=== PATIENT | female | born 1960 | race Caucasian/White ===

== ENCOUNTER 2017-06-13 10:14 | Outpatient (CLI) | payer BC | END 2017-06-13 10:15 | disposition home or self-care (01) | LOC: BICMAMMO 10:14 | PROVIDERS: ATTEND Obstetrics & Gynecology | DX: Z12.31 Encounter for screening mammogram for malignant neoplasm of breast (principal) | CPT/HCPCS: 77063 ==

== ENCOUNTER 2018-06-15 14:53 | Outpatient (CLI) | payer BC | END 2018-06-15 14:54 | disposition home or self-care (01) | LOC: BICMAMMO 14:53 | PROVIDERS: ATTEND Obstetrics & Gynecology | DX: Z12.31 Encounter for screening mammogram for malignant neoplasm of breast (principal); Z80.3 Family history of malignant neoplasm of breast | CPT/HCPCS: 77063; 77067 ==

== ENCOUNTER 2019-04-09 10:44 | Outpatient (CLI) | payer BC ==
--- NOTE | 2019-04-09 12:21 | RAD ---
3 VIEWS RIGHT KNEE: Date: 04/09/19 COMPARISON: 04/20/18. HISTORY: Acute right knee pain. FINDINGS: 3 views of the right knee show no evidence of acute fracture or dislocation. A moderate osteophyte is seen in the medial femorotibial compartment. No knee effusion is seen. IMPRESSION: Moderate right knee osteoarthritis without acute osseous abnormality. POS: CET
== END 2019-04-09 10:45 | disposition home or self-care (01) ==
LOC: BICRAD 10:44
PROVIDERS: ATTEND Family Medicine
DX: M25.561 Pain in right knee (principal); M17.11 Unilateral primary osteoarthritis, right knee
CPT/HCPCS: 36415; 80053

== ENCOUNTER 2021-09-18 09:48 | Outpatient (CLI) | payer BC | END 2021-09-18 09:49 | disposition home or self-care (01) | LOC: BICMAMMO 09:48 | PROVIDERS: ATTEND Obstetrics & Gynecology | DX: Z12.31 Encounter for screening mammogram for malignant neoplasm of breast (principal); Z80.3 Family history of malignant neoplasm of breast | CPT/HCPCS: 77063; 77067 ==

== ENCOUNTER 2022-11-04 14:51 | Outpatient (CLI) | payer BC | END 2022-11-04 14:52 | disposition home or self-care (01) | LOC: BICMAMMO 14:51 | PROVIDERS: ATTEND Obstetrics & Gynecology | DX: Z12.31 Encounter for screening mammogram for malignant neoplasm of breast (principal); Z13.820 Encounter for screening for osteoporosis; M81.0 Age-related osteoporosis without current pathological fracture; M85.80 Other specified disorders of bone density and structure, unspecified site; E28.39 Other primary ovarian failure | CPT/HCPCS: 77063; 77067; 77080 ==

== ENCOUNTER 2023-06-17 10:49 | Outpatient (CLI) | payer BC | END 2023-06-17 10:50 | disposition home or self-care (01) | LOC: SCSRAD 10:49 | PROVIDERS: ATTEND Family Medicine | DX: M25.551 Pain in right hip (principal); M16.11 Unilateral primary osteoarthritis, right hip ==